=== PATIENT | female | born 2000 | race Caucasian/White ===

== ENCOUNTER 2024-10-26 19:38 | Emergency (ER) | payer MEDICAID ==
[~2024-10-26] VITALS: Ht 165.1 cm; Wt 77.0 kg
[2024-10-26 19:43] VITALS: O2SAT 99
[2024-10-26 19:52] VITALS: BP 140/93; PULSE 103; RESP 18; TEMP 36.5; O2SAT 100
[2024-10-26] MEDS: SODIUM CHLORIDE 0.9% 1,000 ML IV ONE ×2 (20:15)
[2024-10-26 21:11] LABS: BASOPHILS % 0.6 % (0.0-2.0); EOSINOPHILS % 1.6 % (0.0-5.0); HEMOGLOBIN. 12.6 g/dL (12.0-16.0); LYMPHOCYTES % 37.1 % (20.0-50.0); MEAN CORPUSCULAR HEMOGLOBIN 29.8 pg (28.0-32.0); MEAN CORPUSCULAR VOLUME 87.6 fL (81.0-99.0); MEAN PLATELET VOLUME 10.3 fl (7.4-10.4); MONOCYTES % 5.5 % (2.0-8.0); NEUTROPHILS % 55.2 % (40.0-76.0); PLATELET 249 x1000/uL (130-400); RED BLOOD CELL COUNT 4.22 mill/uL (4.2-5.4); WHITE BLOOD COUNT 7.6 x1000/uL (4.5-11.0)
[2024-10-26 21:18] LABS: CARBON DIOXIDE 26 mEq/L (21-32); CHLORIDE 105 mEq/L (98-107); POTASSIUM 3.9 mEq/L (3.5-5.1); SODIUM 140 mEq/L (136-145)
[2024-10-26 21:19] LABS: CALCIUM 9.1 mg/dL (8.7-10.4)
[2024-10-26 21:22] LABS: HCG SCREEN NEGATIVE
[2024-10-26 21:23] LABS: CREATININE 0.8 mg/dL (0.6-1.0)
[2024-10-26 21:24] LABS: GLUCOSE 111 mg/dL (70-105); UREA NITROGEN BLOOD 14 mg/dL (9-23)
[2024-10-26 21:25] LABS: ALANINE AMINOTRANSFERASE 25 IU/L (10-49)
[2024-10-26 21:26] LABS: ALBUMIN 4.4 g/dL (3.2-4.8); ASPARTATE AMINOTRANSFERASE 20 IU/L (<34); BILIRUBIN DIRECT < 0.1 mg/dL (<=3.0); BILIRUBIN TOTAL 0.4 mg/dL (0.1-1.0); PROTEIN TOTAL 7.5 g/dL (6.0-8.3)
[2024-10-26 21:28] LABS: D-DIMER 0.25 mg/L FEU (<0.50); PROTHROMBIN TIME 10.8 sec (9.6-11.0)
[2024-10-26 21:29] LABS: TROPONIN I HIGH SENSITIVITY < 4 ng/L (3.0-34)
[2024-10-26 21:30] LABS: THYROID STIMULATING HORMONE 1.53 uIU/mL (0.55-4.78)
== END 2024-10-27 00:30 | disposition home or self-care (01) ==
LOC: ER 19:38
DX: R07.89 Other chest pain (principal); Z79.899 Other long term (current) drug therapy; Z86.2 Personal history of diseases of the blood and blood-forming organs and certain disorders involving the immune mechanism
CPT/HCPCS: 99291; 96360; 80076; 80048; 84703; 83880; 83690; 84443; 85025; 85379; 85610; 84484; 36415; 71045; 93005; J7030